=== PATIENT | female | born 1965 | race Caucasian/White ===

== ENCOUNTER 2020-01-22 16:47 | Outpatient (CLI) | payer OTHER | END 2020-01-22 16:48 | disposition home or self-care (01) | LOC: COV 16:47 | PROVIDERS: ATTEND Family Medicine | DX: R05 Cough (principal); R53.83 Other fatigue; J02.9 Acute pharyngitis, unspecified | CPT/HCPCS: 81599 ==

== ENCOUNTER 2020-08-13 17:19 | Outpatient (CLI) | payer OTHER | END 2020-08-13 17:20 | disposition home or self-care (01) | LOC: COV 17:19 | PROVIDERS: ATTEND Family Medicine | DX: R05 Cough (principal); J02.9 Acute pharyngitis, unspecified; R09.81 Nasal congestion; Z20.828 Contact with and (suspected) exposure to other viral communicable diseases ==

== ENCOUNTER 2020-12-28 06:36 | Emergency (ER) | payer BC, OTHER ==
[2020-12-28 06:45] VITALS: BP 138/80
[2020-12-28] MEDS ORDERED: DOXEPIN 10 MG CAPSULE PO STA (06:52)
[2020-12-28] MEDS ORDERED: DEXAMETHASONE 10 MG/ML VIAL PO STA (06:52)
[2020-12-28] MEDS ORDERED: CHERRY SYRUP 10 ML UDC PO ONE (06:52)
--- NOTE | 2020-12-28 06:54 | ED Physician Documentation ---
PD HPI SKIN - Stated complaint Stated Complaint: HIVES ALL OVER BODY - Chief complaint Chief Complaint: Wound - History obtained from History obtained from: Patient - Additional information Additional information: Previously healthy 55-year-old woman has been afflicted with hives for the last week. She has a mastiff, it sleeps in the bed with her. About a week ago it urinated in the bed. She woke up and had burning of her skin and developed hives. She of course started off but the burning in the hives continued. She saw An outpatient PA in the clinic about 3 days ago and was prescribed pred nisone at a dose of 40 mg a day noting that 60 mg a day makes her heart race and Benadryl. She also tried calamine lotion and a few other topicals. Despite that the itching and the burning is worse. No intraoral involvement. No fevers. Review of Systems Constitutional: reports: Reviewed and negative Ears: reports: Reviewed and negative Nose: reports: Reviewed and negative Throat: reports: Reviewed and negative PD PAST MEDICAL HISTORY - Past Medical History Past Medical History: Yes Cardiovascular: None Respiratory: None Neuro: None Endocrine/Autoimmune: None GI: None MANAGER FLOAT: None : None HEENT: None Psych: Depression Musculoskeletal: None Derm: None - Past Surgical History Past Surgical History: No - Present Medications Home Medications: Ambulatory Orders Medication Instructions Recorded Confirmed Doxepin [SINEquan] 10 mg PO TID PRN #30 cap 12/28/20 Sertraline [Zoloft] 50 mg PO DAILY 12/28/20 12/28/20 dexAMETHasone [Decadron] 4 mg PO BIDWM #10 tablet 12/28/20 - Allergies Allergies/Adverse Reactions: Allergies Allergy/AdvReac Type Severity Reaction Status Date / Time No Known Drug Allergies Allergy Verified 12/28/20 06:52 - Social History Does the pt smoke?: No Smoking Status: Never smoker Does the pt drink ETOH?: No Does the pt have substance abuse?: No - Immunizations Immunizations are current?: Yes - POLST Patient has POLST: No PD ED PE NORMAL - Vitals Vital signs reviewed: Yes - General General: Alert and oriented X 3, No acute distress - HEENT HEENT: Pharynx benign - Derm Derm: Other (Confluent urticaria mostly on the trunk, especially in the axillae.) - Neuro Neuro: Alert and oriented X 3, Normal speech Results - Vitals Vitals: Vital Signs - 24 hr 12/28/20 12/28/20 06:43 07:04 Temperature 37.0 C Heart Rate 101 H Respiratory 17 17 Rate Blood Pressure 138/80 H O2 Saturation 99 Oxygen O2 Source Room air PD MEDICAL DECISION MAKING - ED course ED course: 55-year-old woman with recalcitrant hives, will change her steroid and substitute doxepin for Benadryl. She will take OTC Zyrtec as well. Departure - Departure Disposition: 01 Home, Self Care Clinical Impression: Hives Condition: Good Record reviewed to determine appropriate education?: Yes Instructions: ED Urticaria Prescriptions: dexAMETHasone [Decadron] 4 mg PO BIDWM #10 tablet Doxepin [SINEquan] 10 mg PO TID PRN #30 cap PRN Reason: Itching Comments: Follow-up with your primary care physician in a few days for recheck. Return for worsening symptoms. Discharge Date/Time: 12/28/20 07:05
--- OUTSIDE RECORDS SUMMARY | 2021-01-01 02:24 | EXTERNAL MEDICAL SUMMARY RPT | Continuity of Care Document ---
:1965 Demographics Phone Unavailable Preferred Language Unknown Marital Status Unknown Judaism Affiliation Unknown Race Unknown Ethnic Group Unknown Author Organization [facility] Address [address] [place] [address] Phone Social History date description facility [phone]
== END 2020-12-28 07:05 | disposition home or self-care (01) ==
LOC: ED 06:36
DX: L50.9 Urticaria, unspecified (principal)
CPT/HCPCS: 99282; 99283; A9270

== ENCOUNTER 2020-12-30 12:18 | Emergency (ER) | payer BC ==
--- NOTE | 2020-12-30 13:14 | ED Physician Documentation ---
History of Present Illness - Stated complaint Stated Complaint: HIVES - Chief complaint Chief Complaint: Allergic Rx - History obtained from History obtained from: Patient - History of Present Illness Timing: How many weeks ago (1) Pain level max: 0 Pain level now: 0 - Additonal information Additional information: Patient is a 55-year-old female who presents to the emergency department with hives. This been ongoing for the past week. She states it started after one of her dogs urinated in her bed. She was placed on prednisone and Benadryl originally, this did not improve her symptoms, was seen here and changed to doxepin and dexamethasone. She states she was improving but the hives recurred today. She states she has washed her sheets and linens. No new soaps or detergents. No new medications besides the ones recently prescribed. She describes the rash is itchy. Nothing makes it better or worse Review of Systems Constitutional: denies: Fever, Chills Respiratory: denies: Cough GI: denies: Vomiting, Diarrhea Skin: denies: Rash Musculoskeletal: denies: Neck pain, Back pain Neurologic: denies: Headache PD PAST MEDICAL HISTORY - Past Medical History Past Medical History: Yes Cardiovascular: None Respiratory: None Neuro: None Endocrine/Autoimmune: None GI: None [employer]: None : None HEENT: None Psych: Depression Musculoskeletal: None Derm: None - Past Surgical History Past Surgical History: No - Present Medications Home Medications: Ambulatory Orders Medication Instructions Recorded Confirmed Doxepin [SINEquan] 10 mg PO TID PRN #30 cap 12/28/20 Sertraline [Zoloft] 50 mg PO DAILY 12/28/20 12/28/20 dexAMETHasone [Decadron] 4 mg PO BIDWM #10 tablet 12/28/20 Cetirizine HCl [Zyrtec] 10 mg PO DAILY #20 tablet 12/30/20 - Allergies Allergies/Adverse Reactions: Allergies Allergy/AdvReac Type Severity Reaction Status Date / Time No Known Drug Allergies Allergy Verified 12/30/20 12:24 - Social History Does the pt smoke?: No Smoking Status: Never smoker Does the pt drink ETOH?: No Does the pt have substance abuse?: No - Immunizations Immunizations are current?: Yes - POLST Patient has POLST: No PD ED PE NORMAL - Vitals Vital signs reviewed: Yes - General General: Alert and oriented X 3, No acute distress - HEENT HEENT: Moist mucous membranes - Neck Neck: Supple, no meningeal sign - Cardiac Cardiac: RRR - Respiratory Respiratory: No respiratory distress, Clear bilaterally - Derm Derm: Warm and dry, Other (Diffuse urticaria and raised urticaria over the feet, legs and arms. Blanches easily.) - Neuro Neuro: Alert and oriented X 3 - Psych Psych: Normal mood, Normal affect Results - Vitals Vitals: Vital Signs - 24 hr 12/30/20 12/30/20 12:24 13:33 Temperature 36.5 C 36.4 C L Heart Rate 86 80 Respiratory 16 15 Rate Blood Pressure 125/72 131/74 H O2 Saturation 97 97 Oxygen O2 Source Room air PD MEDICAL DECISION MAKING - ED course Complexity details: considered differential, d/w patient ED course: Patient with what appears to be urticaria, is not on improving as quick as would be expected with steroids. We will give her an extra dose of dexamethasone. Recommend that she follow-up with dermatology tomorrow. I attempted to call dermatology today but they are closed. We will place her on Zyrtec as well. Patient has no wheezing or stridor. No evidence of anaphylaxis. No pustules. Departure - Departure Disposition: 01 Home, Self Care Clinical Impression: Hives Condition: Stable Instructions: ED Urticaria Follow-Up: [facility] [Provider Group] - Within 1 week ([facility] [address] [place] [address]) Prescriptions: Cetirizine HCl [Zyrtec] 10 mg PO DAILY #20 tablet Comments: Please call [facility] tomorrow. Let them know that you were seen in the emergency department for this x2 and that we recommended urgent follow-up in the clinic. We will try adjusting your medications to see if this helps control your symptoms better. Return if you worsen. [address] [place] [address] Discharge Date/Time: 12/30/20 13:41
[2020-12-30] MEDS ORDERED: CHERRY SYRUP 10 ML UDC PO ONE (13:16)
[2020-12-30] MEDS ORDERED: DEXAMETHASONE 10 MG/ML VIAL PO STA (13:16)
[2020-12-30 13:34] VITALS: BP 131/74
--- OUTSIDE RECORDS SUMMARY | 2021-01-01 03:15 | EXTERNAL MEDICAL SUMMARY RPT | Continuity of Care Document ---
:1965 Demographics Phone Unavailable Preferred Language Unknown Marital Status Unknown Quaker Affiliation Unknown Race Unknown Ethnic Group Unknown Author Organization [facility] Address [address] [id number] Phone Social History date description facility [phone]
--- OUTSIDE RECORDS SUMMARY | 2021-01-01 03:15 | EXTERNAL MEDICAL SUMMARY RPT | Continuity of Care Document ---
:1965 Demographics Phone Unavailable Preferred Language Unknown Marital Status Unknown Advent Affiliation Unknown Race Unknown Ethnic Group Unknown Author Organization [facility] Address [address] [phone] Phone Social History date description facility [phone]
== END 2020-12-30 13:41 | disposition home or self-care (01) ==
LOC: ED 12:18
DX: L50.9 Urticaria, unspecified (principal)
CPT/HCPCS: 99282; 99284; A9270

== ENCOUNTER 2022-01-29 08:00 | Outpatient (CLI) | payer BC ==
[2022-01-29 23:14] LABS: BACTERIAL VAGINOSIS DNA NEGATIVE (NEGATIVE); CANDIDA GLABRATA DNA NEGATIVE (NEGATIVE); CANDIDA GROUP DNA NEGATIVE (NEGATIVE); CANDIDA KRUSEI DNA NEGATIVE (NEGATIVE); TRICHOMONAS VAGINALIS DNA NEGATIVE (NEGATIVE)
== END 2022-01-30 10:37 | disposition home or self-care (01) ==
LOC: LAB.N 08:00
PROVIDERS: ATTEND Physician Assistant Medical
DX: N30.00 Acute cystitis without hematuria (principal)
CPT/HCPCS: 81514; 87086; 87181

== ENCOUNTER 2023-05-19 16:15 | Outpatient (CLI) | payer BC, OTHER ==
[2023-05-20 11:24] LABS: BACTERIAL VAGINOSIS DNA NEGATIVE (NEGATIVE); CANDIDA GLABRATA DNA NEGATIVE (NEGATIVE); CANDIDA GROUP DNA POSITIVE (NEGATIVE); CANDIDA KRUSEI DNA NEGATIVE (NEGATIVE); TRICHOMONAS VAGINALIS DNA NEGATIVE (NEGATIVE)
== END 2023-05-19 16:30 | disposition home or self-care (01) ==
LOC: LAB.N 16:15
PROVIDERS: ATTEND Physician Assistant Medical
DX: R30.0 Dysuria (principal)
CPT/HCPCS: 81514; 87086; 87181

== ENCOUNTER 2023-07-02 08:00 | Outpatient (CLI) | payer OTHER ==
[2023-07-02 16:53] LABS: FECAL OCCULT BLOOD (FIT) NEGATIVE (NEGATIVE)
== END 2023-07-02 23:59 | disposition home or self-care (01) ==
LOC: LAB 08:00
PROVIDERS: ATTEND Obstetrics & Gynecology
DX: Z12.11 Encounter for screening for malignant neoplasm of colon (principal)
CPT/HCPCS: 82274

== ENCOUNTER 2024-04-20 15:46 | Outpatient (CLI) | payer OTHER ==
--- NOTE | 2024-04-20 16:35 | Sleep Patient Instructions ---
Sleep Center Visit Summary - Patient Visit Information Reason for Visit: Initial consult for evaluation of sleep disordered breathing and other sleep issues. - Patient Instructions Instructions Attached: Sleep Study Home Monitor, Sleep Study Additional Instructions: You will be completing a sleep study, either an in-lab polysomnography (PSG) or home sleep study (HST). You will follow-up in the sleep care office after the sleep study is completed to hear the results and talk about therapy, if needed. You will be called by our office staff to schedule this appointment, but you may contact us with any questions. - Clinic Information Contact: Merged with [facility] [address] [place] [phone] [email or web address] T: [phone]
--- NOTE | 2024-04-20 16:41 | SLEEP CARE CONSULTATION ---
Information from patient questionnaire entered by Kristie Page. I have reviewed and concur with the information entered by Kristie Page. This document represents the service I personally performed and the decisions made by me, Genesis Munoz ARNP. History of Present Illness Service Date and Time: 04/20/2024 1546 Reason for Visit: New patient Chief Complaint: reports: Insomnia, Unrefreshed sleep, Observed pauses in breathing, Fatigue, Frequent awakenings at night, Other (STARTLED AWAKE) Date of Onset: 10+YRS Usual bedtime: 1999 Time it takes to fall asleep: 60+MINS Observed to quit breathing while asleep: No Sleeps alone due to snoring: No Number of times waking at night: SEVERAL TIMES Reasons for waking at night: reports: Other (UNKNOWN, NOISE) Toss, Turn, or Twitch while sleeping: Yes Recalls having dreams: Yes (she has vivid dreams and dreams a lot) Usually gets out of bed at: 0430 Feels refreshed in the morning: No Morning headache: Yes (1-2 times a week, takes Tylenol or eat, drinks water and resolve) Sleepy or fatigued during the day: Yes Ever fallen asleep while driving: No Takes day naps: No Prior sleep studies: Yes Additional HPI information: I had the pleasure of seeing GAVI LANDRY today regarding the possibility of her having a sleep disorder. Her current complaints are insomnia, unrefreshed sleep, observed pauses in breathing, fatigue and frequent night awakenings. She also complains of being startled awake. She says she has "sleeping issues" that probably started at menopause. She had a sleep about 20 years ago, was diagnosed with sleep apnea but not offered any treatment for it but was treated for RLS. She says she takes melatonin at night to help her go to sleep. She says she sleeps 3-5 hours a night and is very broken sleep. She has times where she will jerk awake. Her says she snores sometimes. She says she will lay in bed to chill staring about 7 pm. She thinks she may fall asleep between 9-10 PM. She wakes about 11 or so, then about every hour after that until she gets up again about 0430. - Parasomnia Symptoms Ever been unable to move upon waking from sleep: No Walks in sleep: No Talks in sleep: Yes Ever acted out dreams in sleep: No Ever felt weak in the knees when startled or emotional: No Bothered by creepy, crawly, restless sensations in legs: Yes (feet gets jittery at night, wears socks to help) Problems with memory or concentration: Yes (both) Subjective Initial [place] Sleepiness Scale score: 6 (04/19/24) Past Medical History Past Medical History: reports: Anxiety Social History The patient's occupation is a CAREGIVER. Patient is Single and lives in [place]. Have you smoked in the past 12 months: Yes Alcohol use: No Caffeine use: Yes Caffeine amount and frequency: ON OCASSSION A COKE Family History Family history of sleep disordered breathing: No Allergies and Home Medications Known drug allergies: No Drug allergies reviewed: Yes Home medication list reviewed: Yes (as listed; does take supplements but did not bring in list) Allergy and home medication list: Allergies No Known Drug Allergies Allergy (Verified 04/20/24 15:54) Home Medications Medication Instructions Recorded Confirmed Last Taken Type Sertraline [Zoloft] 50 mg PO DAILY 12/28/20 04/20/24 12/27/20 History Review of Systems Cardiovascular: reports: palpitations. denies: high blood pressure Gastrointestinal: denies: heartburn Neurological: reports: headaches Psychiatric: reports: anxiety Ear/Nose/Throat: reports: wisdom teeth removed. denies: tonsillectomy Endocrine: reports: sluggishness, too hot or cold (HOT) Immunologic: reports: itching Physical Exam Vital signs obtained and entered by: KRISTIE Frank MA Blood Pressure: 119/77 (LEFT ARM) Cuff size: regular Heart Rate: 77 O2 Saturation: 97 Height: 5 ft 6 in Weight: 184 lb Body Mass Index: 29.7 BMI Classification: Overweight Neck circumference: 14.5 Mouth and throat: narrow oropharynx Soft palate: long Hard palate: normal Uvula: normal Uvula visualization: 50% Mallampati Class II Tongue: enlarged in size with teeth ott on lateral edges Tonsils: small Neck: normal w/o lymphadenopathy or thyromegaly Heart: regular rate and rhythm Lungs: clear bilaterally Impression and Plan 1. Suspected Obstructive Sleep Apnea-Hypopnea Syndrome, as possibly previously diagnosed and as suggested by a history of irregular snoring, gasping or choking in sleep, morning headache, frequent awakening during the night, unrefreshed sleep and cognitive impairment. Narrow oropharynx and obesity are common predisposing factors for obstructive sleep apnea-hypopnea syndrome. I recommend proceeding to polysomnography to confirm the diagnosis and to assess severity. If the patient has significant sleep disordered breathing, a manual CPAP titration study will also be performed to find the optimal treatment pressure. I informed the patient of what the sleep studies involve and after some discus bebo, obtained agreement to proceed. The pathophysiology of obstructive sleep apnea-hypopnea syndrome was discussed with the patient and health risks of cardiovascular and cerebrovascular disease if not treated. Risks of drowsy driving discussed in detail and patient advised to avoid long distance driving and to wool puller at the first sign of drowsiness. Patient agreed to plan. * Schedule polysomnography * Avoid long distance driving or driving when feeling sleepy. * Avoid alcohol, sedative and muscle relaxant around bedtime. * Attempt to lose weight. * Review instructions provided by trained office staff on how to prepare for the sleep study. * Return for follow-up after sleep study completed. Counseling Topics: Weight loss health impact Plan: PSG/HST and followup Visit Type: In Office Time Spent with Patient (minutes): 41 Provider Statement: I spent 100% of the Face to Face Visit with the patient with greater than 50% spent counseling the patient and coordination of care.
[2024-04-20 16:50] VITALS: BP 119/77; O2SAT 97
== END 2024-04-20 15:47 | disposition home or self-care (01) ==
LOC: SC 15:46
PROVIDERS: ATTEND Nurse Practitioner Family
DX: G47.8 Other sleep disorders (principal); R06.83 Snoring; R51.9 Headache, unspecified; R41.89 Other symptoms and signs involving cognitive functions and awareness; E66.3 Overweight; Z68.29 Body mass index [BMI] 29.0-29.9, adult
CPT/HCPCS: 99203; 99212

== ENCOUNTER 2024-05-25 14:00 | Outpatient (CLI) | payer OTHER | END 2024-05-25 14:01 | disposition home or self-care (01) | LOC: SC 14:00 | PROVIDERS: ATTEND Nurse Practitioner Family | DX: G47.33 Obstructive sleep apnea (adult) (pediatric) (principal); R09.02 Hypoxemia; E66.3 Overweight; Z68.29 Body mass index [BMI] 29.0-29.9, adult | CPT/HCPCS: 95806 ==